=== PATIENT | female | born 1980 | race Caucasian/White ===

== ENCOUNTER → 2024-07-25 | Outpatient (CLI) | payer BC, SELFPAY ==
--- NOTE | 2024-07-25 14:54 | MRI_ITS ---
EXAM: MR RIGHT LOWER EXTREMITY WITHOUT INTRAVENOUS CONTRAST, KNEE CLINICAL INDICATION: assess for MCL tear, SNOW SKIING INJURY TECHNIQUE: Multiplanar and multisequence MR images of the right knee without intravenous contrast. COMPARISON: 07/25/24 FINDINGS: BONES/JOINTS: Bone marrow edema potentially related to impaction injury at the posterior aspect lateral tibial plateau. There is also a small area of impaction related marrow edema at the posterior aspect of the medial tibial plateau. There is anterior translation of the tibia relative to the femur. EXTENSOR MECHANISM: Unremarkable. MEDIAL MENISCUS: Unremarkable. LATERAL MENISCUS: Unremarkable. MEDIAL CAPSULE/SUPPORTING STRUCTURES: Unremarkable. Intact. LATERAL CAPSULE/SUPPORTING STRUCTURES: Unremarkable. Lateral collateral ligamentous complex, inclusive of the popliteal tendon, are intact. ANTERIOR CRUCIATE LIGAMENT: Anterior cruciate ligament is disrupted proximally. PCL is intact POSTERIOR CRUCIATE LIGAMENT: See above. MUSCLES: Unremarkable. CARTILAGE: At least moderate grade chondral fissure of the median ridge of the patella without subchondral marrow signal alteration. FLUID: At least moderate joint effusion with synovitis. Tiny Clark''s cyst. MRI/Lower Ext Joint Only (Routine) IMPRESSION: 1. Anterior cruciate ligament is disrupted proximally. 2. At least moderate joint effusion with synovitis. 3. Bone marrow edema potentially related to impaction injury at the posterior aspect lateral tibial plateau. 4. At least moderate grade chondral fissure of the median ridge. Electronically Signed: Tato Martin MD at 16:59 EST ,
== END | disposition home or self-care (01) ==
LOC: MRI 14:46
PROVIDERS: Referring Provider Orthopaedic Surgery Sports Medicine; Visit Provider Orthopaedic Surgery Sports Medicine
DX: M25.561 Pain in right knee (principal)
CPT/HCPCS: 73721